=== PATIENT | male | born 1985 | race Caucasian/White ===

== ENCOUNTER 2016-12-07 18:38 | Emergency (ER) | payer MEDICAID ==
[~2016-12-07] VITALS: Ht 185.4 cm; Wt 79.4 kg
[2016-12-07 18:40] VITALS: BP 125/92; PULSE 118; RESP 16; TEMP 98.1; O2SAT 98
== END 2016-12-07 20:00 ==
LOC: SED 18:38
DX: S63.502A Unspecified sprain of left wrist, initial encounter (principal); Z88.5 Allergy status to narcotic agent; X58.XXXA Exposure to other specified factors, initial encounter; Y93.89 Activity, other specified; Y92.89 Other specified places as the place of occurrence of the external cause; Y99.8 Other external cause status
CPT/HCPCS: 99284

== ENCOUNTER 2024-08-27 19:03 | Emergency (ER) | payer MEDICAID ==
[~2024-08-27] VITALS: Ht 185.4 cm; Wt 82.6 kg
[2024-08-27 19:59] VITALS: BP_SYST 132; PULSE 78; RESP 18; TEMP 97.8; O2SAT 98
[2024-08-27] MEDS ORDERED: IBUP-1969 PO (20:05)
[2024-08-27] MEDS ORDERED: CIPR7.5D6 EACH EAR (20:05)
[2024-08-27] MEDS ORDERED: AMOX-423 PO (20:05)
== END 2024-08-27 20:12 | disposition home or self-care (01) ==
LOC: SED 19:03
DX: H60.91 Unspecified otitis externa, right ear (principal); Z88.6 Allergy status to analgesic agent
CPT/HCPCS: 99283